=== PATIENT | female | born 1985 | race Caucasian/White ===

== ENCOUNTER 2018-04-23 18:05 | Inpatient (IN) | payer OTHER ==
[2018-04-23 18:52] VITALS: BMI 32.9
[2018-04-23 19:54] LABS: BASO % 0.4 % (0-2.0); EOS % 2.5 % (0-4.5); HEMATOCRIT 35.5 % (32.4-45.2); HEMOGLOBIN 13.1 GM/dL (10.7-15.3); MCH 31.1 pg (25.7-33.7); MCHC 36.8 g/dl (32.0-36.0); MEAN CELL VOLUME 84.5 fl (80-96); MEAN PLT VOLUME 9.9 fl (7.5-11.1); MONO % 4.7 % (3.8-10.2); NEUT % 74.4 % (42.8-82.8); PLATELET COUNT 224 K/MM3 (134-434); RDW 14.6 % (11.6-15.6); WHITE BLOOD COUNT 10.1 K/mm3 (4.0-10.0)
[2018-04-23] MEDS ORDERED: DEXTROSE 5%-LACTATED RINGERS 1,000 ML IV SCH ×2 (20:00→22:00)
[2018-04-23] MEDS ORDERED: BUTORPHANOL TARTRATE 1 MG/ML VIAL IVPUSH PRN (20:06)
[2018-04-23] MEDS ORDERED: PROMETHAZINE HCL 25 MG/1 ML VIAL IVPB PRN (20:08)
[2018-04-23 20:11] LABS: INR 0.98 (0.83-1.09); PROTHROMBIN TIME (PATIENT) 11.6 SEC (9.7-13.0)
[2018-04-23 20:14] LABS: ACTIVATED PTT 23.8 SECONDS (25.2-36.5)
--- NOTE | 2018-04-23 20:18 | HP ---
Past Medical History - Primary Care Physician PCP:: Adilene Stanley - Admission Chief Complaint: Spontaneous rupture of membranes. IUP at 39 week History of Present Illness: 32 yo EDC 04/27/18 EGA 39.3 weeks admitted due to SROM. No medical problems Hx x1 VTOP x5 Spont AB x 1 Hx of Anemia History Source: Patient - Past Medical History ...: 8 ...Para: 1 ...Term: 1 ...: 0 ...Spon : 1 ...Induced : 5 ...Multiple Gestation: 0 ...LMP: 07/06/17 ... Weeks Gestation by Dates: 41.4 ...EDC by Dates: 04/12/18 ...EDC by Sono: 04/27/18 - Past Surgical History Past Surgical History: Yes: None Hx Myomectomy: No Hx Transabdominal Cerclage: No - Smoking History Smoking history: Never smoked Have you smoked in the past 12 months: No - Alcohol/Substance Use Hx Alcohol Use: No Home Medications - Allergies Allergies/Adverse Reactions: Allergies Allergy/AdvReac Type Severity Reaction Status Date / Time No Known Allergies Allergy Verified 04/23/18 18:43 - Home Medications Home Medications: Ambulatory Orders Pnv No.95/Ferrous Fum/Folic AC [ Formula] 1 each PO DAILY 04/23/18 Review of Systems - Review of Systems Constitutional: reports: No Symptoms Eyes: reports: No Symptoms HENT: reports: No Symptoms Neck: reports: No Symptoms Cardiovascular: reports: No Symptoms Respiratory: reports: No Symptoms Gastrointestinal: reports: Abdominal Pain Genitourinary: reports: No Symptoms Breasts: reports: No Symptoms Reported Musculoskeletal: reports: No Symptoms Integumentary: reports: No Symptoms Neurological: reports: No Symptoms Endocrine: reports: No Symptoms Hematology/Lymphatic: reports: No Symptoms Psychiatric: reports: No Symptoms Physical Exam - Maternity Vital Signs: Vital Signs Temperature 98.4 F 04/23/18 18:47 Pulse Rate 82 04/23/18 18:47 Respiratory Rate 18 04/23/18 18:47 Blood Pressure 120/71 04/23/18 18:47 O2 Sat by Pulse Oximetry (%) Constitutional: Yes: Well Nourished, No Distress HENT: Yes: WNL Neck: Yes: WNL Lungs: Clear to auscultation - Abdominal Exam/OB Fundal Height: 40 Number of Fetuses: Single Presentation: Vertex Regularity: Regular Intensity: Mild/Mod Monitor Mode: External Category: I Accelerations: Non-Uniform Decelerations: None - Vaginal Exam/OB Dilatation (cm): 2 Effacement (%): 100 Amniotic Membrane Status: Ruptured Presentation: Vertex/Position - Labs Lab Results: CBC, BMP 04/23/18 19:30 Problem List - Problems (1) Spontaneous rupture of amniotic membranes Code(s): RRY0910 - (2) 39 weeks gestation of Code(s): Z3A.39 - 39 WEEKS GESTATION OF Assessment/Plan Cat 1 SROM 39 week Plan Admit Stadol PRN
[2018-04-23 20:20] LABS: ANION GAP 12 MMOL/L (8-16); BLOOD UREA NITROGEN 10 mg/dL (7-18); CALCIUM 8.9 mg/dL (8.5-10.1); CHLORIDE 104 mmol/L (98-107); CO2 21 mmol/L (21-32); CREATININE 0.6 mg/dL (0.55-1.3); GLUCOSE,RANDOM 111 mg/dL (74-106); POTASSIUM 4.1 mmol/L (3.5-5.1); SODIUM 137 mmol/L (136-145)
[2018-04-23] MEDS: ELECTROLYTE-148 SOLN 1,000 ML IV SCH (20:20)
[2018-04-23] MEDS ORDERED: PROMETHAZINE HCL 25 MG/1 ML VIAL IVPB ONE (21:00)
[2018-04-23] MEDS ORDERED: BUTORPHANOL TARTRATE 1 MG/ML VIAL IVPUSH ONE (21:00)
[2018-04-24] MEDS ORDERED: BUTORPHANOL TARTRATE 1 MG/ML VIAL ONE ×2 (03:00)
[2018-04-24] MEDS ORDERED: PROMETHAZINE HCL 25 MG/1 ML VIAL ONE (03:01)
[2018-04-24] MEDS: ELECTROLYTE-148 SOLN 1,000 ML IV SCH (06:00)
[2018-04-24] MEDS ORDERED: FENTANYL/BUPIVACAINE/NS/PF - PCEA - 50 ML DISP.SYRIN EP ONE ×2 (08:35→13:17)
[2018-04-24] MEDS ORDERED: NALOXONE HCL 0.4 MG/ML VIAL IVPUSH PRN (08:38)
[2018-04-24] MEDS ORDERED: LIDO 2%/EPI 1:200000 PRESRVFRE (20 ML SDVIAL) ONE (08:40)
[2018-04-24] MEDS ORDERED: FENTANYL/BUPIVACAINE/NS/PF - PCEA - 50 ML DISP.SYRIN EP SCH (08:45)
[2018-04-24] MEDS ORDERED: AMPICILLIN SODIUM 2 GM VIAL ONE (10:28)
[2018-04-24] MEDS ORDERED: LIDOCAINE HCL 1% PRESERVATIVE FREE - 30ML VIAL ONE (10:28)
[2018-04-24] MEDS ORDERED: OXYTOCIN 20 UNITS in 0.9% NS 20 UNIT/1,000 ML INFUS.BAG IV ONE ×2 (10:28→16:41)
[2018-04-24] MEDS ORDERED: AMPICILLIN - 2 GM in SODIUM CHLORIDE 100 ML IVPB ONE (10:30)
--- NOTE | 2018-04-24 12:18 | PN ---
Ante-Partal Exam - Subjective Subjective: Pt comfortable s/p epidural Vital Signs: Vital Signs Temperature 98.1 F 04/24/18 12:00 Pulse Rate 74 04/24/18 10:45 Respiratory Rate 20 04/24/18 10:45 Blood Pressure 120/70 04/24/18 10:45 O2 Sat by Pulse Oximetry (%) 100 04/24/18 10:45 Bleeding: Yes Bleeding Description: Mild Headache: No Visual changes: No Right upper quadrant pain: No Pain (scale 1-10): 0 - Contractions Contractions: Yes Regularity: Regular Intensity: Mod/Strong Monitor Mode: External - Exam during Labor Variability: Moderate Category: I Monitor Accelerations: Present Monitor Decelerations: None Exam: Vaginal Dilatation (cm): 7.5 Effacement (%): 100 Amniotic Membrane Status: Ruptured Amniotic Fluid: Clear Presentation: Vertex Station: 0 - Assessment/Plan Assessment/Plan: Pt with SROM, active labor continue expectant management FHTs cat 1 anticipate
[2018-04-24] MEDS ORDERED: OXYTOCIN 30 UNITS in 0.9% NS 30 UNIT/500 ML INFUS.BAG IVPB SCH (14:30)
[2018-04-24] MEDS: AMPICILLIN - 1 GM in SODIUM CHLORIDE 100 ML IVPB SCH ×2 (14:35→14:55)
[2018-04-24] MEDS ORDERED: AMPICILLIN SODIUM 1 GM VIAL ONE (14:43)
[2018-04-24] MEDS ORDERED: MISOPROSTOL 200 MCG TABLET NR SCH (16:00)
[2018-04-24] MEDS ORDERED: BENZOCAINE 28 GM HEMORRHOIDAL OINTMENT TP PRN (16:21)
[2018-04-24] MEDS ORDERED: METHYLERGONOVINE MALEATE 0.2 MG/1 ML AMP IM PRN (16:21)
[2018-04-24] MEDS ORDERED: BENZOCAINE 20% 57 GM BOTTLE TP PRN (16:21)
[2018-04-24] MEDS ORDERED: WITCH HAZEL 50% (TUCKS) 40 PAD/JAR PAD TP PRN (16:21)
[2018-04-24] MEDS ORDERED: BISACODYL 10 MG SUPP.RECT RC PRN (16:21)
--- NOTE | 2018-04-24 16:29 | PN ---
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 Gender: Male Position: Left, OA - 1 Minute Total Score: 9 5 Minutes Total Score: 9 - Feeding Plan Initial Plan: Exclusive throughout hospitalization Remarks - Remarks Remarks: Normal of baby boy from LALI position anterior and posterior shoulders delivered with ease along with remainder of cord clamped and cut mouth and nose bulb suctioned placenta delivered - appeared in tact mom with post hemorrage - evaluated with pelvic exam/uterine massage/ bedside ultrasound small piece of placenta and clots removed with massage 0.2 of methergine given IM, 1000mcg of cytotec given KS bleeding normal after those interventions sponge count correct after delivery mom stable will check cbc 8pm baby to well baby nursery
[2018-04-24] MEDS ORDERED: OXYTOCIN 20 UNITS in 0.9% NS 20 UNIT/1,000 ML INFUS.BAG IV SCH (16:30)
[2018-04-24] MEDS ORDERED: MISOPROSTOL 200 MCG TABLET NR ONE (17:00)
[2018-04-24] MEDS: FERROUS SO4 325 MG TABLET (FP) PO SCH (18:32)
[2018-04-24 20:47] LABS: BASO % 0.2 % (0-2.0); EOS % 0.4 % (0-4.5); HEMATOCRIT 32.9 % (32.4-45.2); LYMPH % 8.1 % (8-40); MCH 30.9 pg (25.7-33.7); MCHC 36.4 g/dl (32.0-36.0); MEAN CELL VOLUME 84.8 fl (80-96); MEAN PLT VOLUME 9.4 fl (7.5-11.1); MONO % 5.5 % (3.8-10.2); NEUT % 85.8 % (42.8-82.8); PLATELET COUNT 204 K/MM3 (134-434); RBC 3.88 M/mm3 (3.60-5.2); RDW 14.4 % (11.6-15.6); WHITE BLOOD COUNT 20.8 K/mm3 (4.0-10.0)
[2018-04-24 23:53] LABS: PLATELET ESTIMATE ADEQUATE
[2018-04-25] MEDS: ACETAMINOPHEN 325 MG TABLET (FP) PO PRN ×2 (06:38→14:42)
[2018-04-25] MEDS: IBUPROFEN 600 MG TABLET (FP) PO PRN ×2 (06:38→14:42)
--- NOTE | 2018-04-25 06:57 | PN ---
Post Progress Note - Subjective Subjective: Doing well, no complaints. VB minimal. Tolerating diet, ambulating, voiding. Passing flatus. FEels well. Type of Delivery: Vital Signs: Vital Signs Temperature 98.3 F 04/25/18 06:00 Pulse Rate 90 04/25/18 02:26 Respiratory Rate 18 04/25/18 02:26 Blood Pressure 120/70 04/25/18 02:26 O2 Sat by Pulse Oximetry (%) 99 04/24/18 15:15 Uterus: Yes: Fundus Firm Abdomen/GI: Yes: Abdomen soft, Tolerating PO Lochia: Yes: Rubra Lochia, amount: Small Extremities: Yes: Calves non-tender Perineum: Yes: Intact Activity: Ambulating - Labs Labs: CBC WBC 20.8 K/mm3 (4.0-10.0) H 04/24/18 20:00 RBC 3.88 M/mm3 (3.60-5.2) 04/24/18 20:00 Hgb 12.0 GM/dL (10.7-15.3) 04/24/18 20:00 Hct 32.9 % (32.4-45.2) 04/24/18 20:00 MCV 84.8 fl (80-96) 04/24/18 20:00 MCH 30.9 pg (25.7-33.7) 04/24/18 20:00 MCHC 36.4 g/dl (32.0-36.0) H 04/24/18 20:00 RDW 14.4 % (11.6-15.6) 04/24/18 20:00 Plt Count 204 K/MM3 (134-434) 04/24/18 20:00 MPV 9.4 fl (7.5-11.1) 04/24/18 20:00 Absolute Neuts (auto) 17.9 K/mm3 (1.5-8.0) H 04/24/18 20:00 Neutrophils % 85.8 % (42.8-82.8) H 04/24/18 20:00 Neutrophils % (Manual) 78.0 % (42.8-82.8) 04/24/18 20:00 Band Neutrophils % 8.0 % 04/24/18 20:00 Lymphocytes % 8.1 % (8-40) D 04/24/18 20:00 Lymphocytes % (Manual) 11.0 % (8-40) 04/24/18 20:00 Monocytes % 5.5 % (3.8-10.2) 04/24/18 20:00 Monocytes % (Manual) 3 % (3.8-10.2) L 04/24/18 20:00 Eosinophils % 0.4 % (0-4.5) D 04/24/18 20:00 Basophils % 0.2 % (0-2.0) 04/24/18 20:00 Nucleated RBC % 0 % (0-0) 04/24/18 20:00 Platelet Estimate Adequate 04/24/18 20:00 Platelet Comment No clumping noted 04/24/18 20:00 Problem List - Problems (1) Vaginal delivery Code(s): O80 - ENCOUNTER FOR FULL-TERM UNCOMPLICATED DELIVERY (2) hemorrhage Code(s): O72.1 - OTHER IMMEDIATE HEMORRHAGE Assessment/Plan regular diet ambulation PO pain meds routine care
[2018-04-25 07:09] LABS: BASO % 0.2 % (0-2.0); EOS % 1.4 % (0-4.5); HEMATOCRIT 30.8 % (32.4-45.2); HEMOGLOBIN 10.6 GM/dL (10.7-15.3); LYMPH % 13.4 % (8-40); MCH 29.5 pg (25.7-33.7); MCHC 34.4 g/dl (32.0-36.0); MEAN CELL VOLUME 85.6 fl (80-96); MEAN PLT VOLUME 9.3 fl (7.5-11.1); MONO % 6.5 % (3.8-10.2); NEUT % 78.5 % (42.8-82.8); PLATELET COUNT 181 K/MM3 (134-434); RDW 14.6 % (11.6-15.6); WHITE BLOOD COUNT 18.2 K/mm3 (4.0-10.0)
[2018-04-25] MEDS: FERROUS SO4 325 MG TABLET (FP) PO SCH ×3 (08:21→17:20)
[2018-04-25] MEDS: PRENATAL VITAMINS W/ FOLIC ACID TABLET (FP) PO SCH (09:48)
[2018-04-25] MEDS ORDERED: SENNOSIDES/DOCUSATE COMBO (SENNA PLUS) TABLET (UD) PO PRN (22:00)
[2018-04-26] MEDS: FERROUS SO4 325 MG TABLET (FP) PO SCH ×2 (08:23→11:56)
[2018-04-26] MEDS: PRENATAL VITAMINS W/ FOLIC ACID TABLET (FP) PO SCH (09:29)
[2018-04-26 09:51] VITALS: BP 124/72; PULSE 66; TEMP 98.1
--- NOTE | 2018-04-26 10:59 | DS ---
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: Vital Signs Temperature 98.1 F 04/26/18 09:49 Pulse Rate 66 04/26/18 09:49 Respiratory Rate 20 04/26/18 09:49 Blood Pressure 124/72 04/26/18 09:49 O2 Sat by Pulse Oximetry (%) 99 04/24/18 15:15 Constitutional: Yes: Well Nourished, No Distress ....Post : Yes: Uterus firm, Uterus non-tender Breast(s): Yes: WNL Musculoskeletal: Yes: WNL Extremities: Yes: WNL Edema: No Neurological: Yes: WNL, Alert, Oriented Labs: CBC, BMP 04/25/18 06:00 04/23/18 19:30 Delivery - Delivery Vaginal Delivery: No Problems Type of Anesthesia: Epidural Episiotomy/Laceration: None EBL (cc): 500 Delivery, Single - Stages of Labor Date 1st Stage Initiatied: 04/24/18 Time 1st Stage Initiated: 05:00 Date 2nd Stage Initiated: 04/24/18 Time 2nd Stage Initiated: 15:00 Date of Delivery: 04/24/18 Time of Delivery: 15:26 Time Placenta Delivered: 15:30 Placenta: Yes: Manual Removal - 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 of Transfer 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 call for appointment. Referrals: Adilene Stanley MD [Staff Physician] - Disposition: HOME - Home Medications Comprehensive Discharge Medication List: Ambulatory Orders Pnv No.95/Ferrous Fum/Folic AC [ Formula] 1 each PO DAILY 04/23/18 Ibuprofen [Motrin -] 600 mg PO QID #28 tablet 04/26/18
== END 2018-04-26 14:00 | disposition home or self-care (01) | DRG 560 ==
LOC: JDEL 18:05 → JLDR 18:30 → J3W 04-24 17:45
PROVIDERS: ADMIT Obstetrics & Gynecology; ATTEND Obstetrics & Gynecology
PROC: 10E0XZZ Delivery of Products of Conception, External Approach (ICD-10-PCS; principal; 2018-04-24)
DX: O67.8 Other intrapartum hemorrhage (principal); O72.1 Other immediate postpartum hemorrhage; Z3A.39 39 weeks gestation of pregnancy; Z37.0 Single live birth
CPT/HCPCS: 36415; 59409; 80048; 85025; 85610; 85730; 86593; 86850; 86900; 86901

== ENCOUNTER 2018-09-13 11:53 | Emergency (ER) | payer OTHER ==
[2018-09-13 12:23] VITALS: BP 121/65; PULSE 98; TEMP 99.2; BMI 27.4
--- NOTE | 2018-09-13 13:03 | PDOC ---
History of Present Illness - General Chief Complaint: Pain Stated Complaint: LT BREAST LUMP Time Seen by Provider: 09/13/18 12:38 History Source: Patient Exam Limitations: No Limitations - History of Present Illness Initial Comments: 09/13/18 16:54 Patient is here with complaints of generalized body aches, low-grade fevers, and sore throat pain since yesterday states fever was 100, but has taken no medication for relief of same. Occurred: reports: yesterday Severity: reports: mild, moderate Modifying Factors: improves with: None Loss of Consciousness: no loss of consciousness Past History - Travel Traveled outside of the country in the last 30 days: No Close contact w/someone who was outside of country & ill: No - Past Medical History Allergies/Adverse Reactions: Allergies Allergy/AdvReac Type Severity Reaction Status Date / Time No Known Allergies Allergy Verified 09/13/18 12:20 Home Medications: Ambulatory Orders Amox-Tr/K Cl [Augmentin 875Mg Tablet] 1 tab PO BID #14 tablet 09/13/18 Asthma: No Cancer: No Cardiac Disorders: No COPD: Yes Diabetes: No HTN: No Seizures: No Thyroid Disease: No - Immunization History Immunization Up to Date: Yes - Suicide/Smoking/Psychosocial Hx Smoking History: Never smoked Have you smoked in the past 12 months: No Hx Alcohol Use: No Drug/Substance Use Hx: No Hx Substance Use Treatment: No Trauma Specific PMHX - Complaint Specific PMHX Back Injury: No Neck Injury: No Review of Systems - Review of Systems Able to Perform ROS?: Yes Is the patient limited Setswana proficient: Yes Constitutional: Yes: Symptoms Reported, See HPI, Malaise. No: Fever HEENTM: Yes: Symptoms Reported Respiratory: Yes: Symptoms reported, See HPI Integumentary: Yes: Symptoms Reported, See HPI, Erythema, Lesions, Lumps All Other Systems: Reviewed and Negative *Physical Exam - Vital Signs Last Vital Signs Temp Pulse Resp BP Pulse Ox 99.2 F 98 H 18 121/65 96 09/13/18 12:21 09/13/18 12:21 09/13/18 12:21 09/13/18 12:21 09/13/18 12:21 - Physical Exam General Appearance: Yes: Nourished, Appropriately Dressed, Apparent Distress, Mild Distress, Moderate Distress HEENT: positive: LULU, Normal ENT Inspection, TMs Normal, Pharynx Normal Neck: negative: Tender Respiratory/Chest: positive: Chest Tender (lactating breasts with erythema to the left upper quadrant with firmness and tenderness consistent with mastitis), Lungs Clear Integumentary: positive: Erythema, Swelling 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 Sarmiento, her EQUIPMENT MONITOR PHOTOTYPESETTING doctor who recommends Augmentin, and will see in Office *DC/Admit/Observation/Transfer Diagnosis at time of Disposition: Acute mastitis of left breast - Discharge Dispostion Disposition: HOME Condition at time of disposition: Stable Decision to Admit order: No - Prescriptions Prescriptions: Amox-Tr/K Cl [Augmentin 875Mg Tablet] 1 tab PO BID #14 tablet - Referrals - Patient Instructions Printed Discharge Instructions: DI for Mastitis Additional Instructions: Rest, avoid strenuous activity or exercise until infection and pain resolved Hot soaks-hot showers to breast to help alleviate some of the congestion, continue breast-feeding May use Tylenol for pain relief Continue Augmentin 1 tablet twice a day until completed Follow-up with Dr. Sarmiento by September 1 - Post Discharge Activity Forms/Work/School Notes: Back to Work
[2018-09-13] MEDS ORDERED: IBUPROFEN 400 MG TABLET (FP) PO ONE ×2 (13:05→13:08)
[2018-09-13] MEDS ORDERED: AMOX TR/POT CLAV 875MG/125MG TABLETS (FP) PO ONE (13:05)
[2018-09-13] MEDS ORDERED: AMOX TR/POT CLAV 875MG/125MG TABLETS (FP) ONE (13:08)
== END 2018-09-13 13:10 | disposition home or self-care (01) ==
LOC: JERFT 11:53
DX: N61.0 Mastitis without abscess (principal)
CPT/HCPCS: 99281-25

== ENCOUNTER 2020-09-18 16:12 | Emergency (ER) | payer OTHER ==
[2020-09-18 16:18] VITALS: TEMP 98.3; BMI 22.3
[2020-09-18 17:36] LABS: BASO % 1.1 % (0-2.0); EOS % 1.8 % (0-4.5); HEMATOCRIT 34.3 % (32.4-45.2); HEMOGLOBIN 12.1 GM/dL (10.7-15.3); LYMPH % 18.2 % (8-40); MCH 28.7 pg (25.7-33.7); MCHC 35.2 g/dl (32.0-36.0); MEAN CELL VOLUME 81.5 fl (80-96); MEAN PLT VOLUME 9.3 fl (7.5-11.1); MONO % 4.6 % (3.8-10.2); NEUT % 74.3 % (42.8-82.8); PLATELET COUNT 271 K/MM3 (134-434); RBC 4.21 M/mm3 (3.60-5.2); RDW 15.5 % (11.6-15.6)
[2020-09-18 17:56] LABS: CALCIUM 8.6 mg/dL (8.5-10.1)
[2020-09-18 17:57] LABS: ALBUMIN 3.2 g/dl (3.4-5.0); BLOOD UREA NITROGEN 13.6 mg/dL (7-18)
[2020-09-18 18:00] LABS: CREATININE 0.5 mg/dL (0.55-1.3)
[2020-09-18 18:02] LABS: BILIRUBIN,TOTAL 0.3 mg/dL (0.2-1); TOT PROT 7.5 g/dl (6.4-8.2)
[2020-09-18 18:36] VITALS: BP 105/65; PULSE 75
[2020-09-18 20:00] LABS: PH,URINE 5.5 (5.0-8.0); URINE APPEARANCE CLEAR; URINE BILIRUBIN NEGATIVE (NEGATIVE); URINE COLOR YELLOW; URINE GLUCOSE (UA) NEGATIVE (NEGATIVE); URINE KETONE NEGATIVE (NEGATIVE); URINE LEUK ESTERASE NEGATIVE (NEGATIVE); URINE NITRITE NEGATIVE (NEGATIVE); URINE PROTEIN NEGATIVE (NEGATIVE); URINE UROBILINOGEN 0.2 mg/dL (0.2-1.0)
== END 2020-09-18 20:20 | disposition home or self-care (01) ==
LOC: JER 16:12
DX: O26.851 Spotting complicating pregnancy, first trimester (principal); Z3A.13 13 weeks gestation of pregnancy
CPT/HCPCS: 36415; 76817-TC; 80053; 81003; 84702; 85025; 86850; 86900; 86901; 87086; 99285-25

== ENCOUNTER 2021-04-03 09:05 | Inpatient (IN) | payer OTHER ==
[2021-04-03] MEDS ORDERED: BUTORPHANOL TARTRATE 1 MG/ML VIAL IVPB PRN (12:48)
[2021-04-03] MEDS: ELECTROLYTE-148 SOLN 1,000 ML IV SCH (13:00)
[2021-04-03 13:11] VITALS: BMI 33.5
[2021-04-03 14:10] LABS: BASO % 0.5 % (0-2.0); EOS % 1.8 % (0-4.5); HEMATOCRIT 37.7 % (32.4-45.2); LYMPH % 18.5 % (8-40); MCH 26.8 pg (25.7-33.7); MCHC 34.4 g/dl (32.0-36.0); MEAN CELL VOLUME 77.9 fl (80-96); MEAN PLT VOLUME 9.3 fl (7.5-11.1); MONO % 6.1 % (3.8-10.2); NEUT % 73.1 % (42.8-82.8); PLATELET COUNT 267 10^3/uL (134-434); RBC 4.84 M/mm3 (3.60-5.2); WHITE BLOOD COUNT 10.3 K/mm3 (4.0-10.0)
[2021-04-03] MEDS ORDERED: DINOPROSTONE 10 MG VAGINAL SUPPOSITORY VG ONE (22:45)
[2021-04-04] MEDS: ELECTROLYTE-148 SOLN 1,000 ML IV SCH ×2 (05:00→20:03)
[2021-04-04] MEDS ORDERED: OXYTOCIN 30 UNITS in 0.9% NS 30 UNIT/500 ML INFUS.BAG IVPB SCH (08:00)
[2021-04-04 08:31] LABS: POC NITRAZINE NEG
[2021-04-04] MEDS ORDERED: PCA PUMP NR ONE ×2 (14:10→16:49)
[2021-04-04] MEDS ORDERED: FENTANYL/BUPIVACAINE/NS/PF - PCEA - 50 ML DISP.SYRIN EP ONE ×2 (14:11→14:26)
[2021-04-04] MEDS ORDERED: BUPIVACAINE HCL/PF 0.25% (2.5MG/ML) 10 ML VIAL ONE (14:33)
[2021-04-04] MEDS ORDERED: OXYTOCIN 20 UNITS in 0.9% NS 20 UNIT/1,000 ML INFUS.BAG IV ONE (15:30)
[2021-04-04] MEDS ORDERED: NALOXONE HCL 0.4 MG/ML VIAL IVPUSH PRN (15:55)
[2021-04-04] MEDS ORDERED: FENTANYL/BUPIVACAINE/NS/PF - PCEA - 50 ML DISP.SYRIN EP SCH (16:00)
[2021-04-04] MEDS: METHYLERGONOVINE MALEATE 0.2 MG/1 ML AMP IM PRN ×2 (17:10→22:18)
[2021-04-04] MEDS ORDERED: MISOPROSTOL 200 MCG TABLET ONE ×2 (17:14→17:16)
[2021-04-04] MEDS ORDERED: ceFAZolin SODIUM 1 GM VIAL ONE (17:21)
[2021-04-04] MEDS ORDERED: ceFAZolin SODIUM 1 GM VIAL IVPB ONE (17:30)
[2021-04-04] MEDS ORDERED: ACETAMINOPHEN 325 MG TABLET (FP) PO PRN (17:31)
[2021-04-04] MEDS ORDERED: BISACODYL 10 MG SUPP.RECT RC PRN (17:31)
[2021-04-04] MEDS ORDERED: BENZOCAINE 20% 57 GM BOTTLE TP PRN (17:31)
[2021-04-04] MEDS ORDERED: WITCH HAZEL 50% (TUCKS) 40 PAD/JAR PAD TP PRN (17:31)
[2021-04-04] MEDS ORDERED: BENZOCAINE 28 GM HEMORRHOIDAL OINTMENT TP PRN (17:31)
[2021-04-04] MEDS ORDERED: MISOPROSTOL 200 MCG TABLET NR ONE (17:35)
[2021-04-04] MEDS ORDERED: OXYTOCIN 20 UNITS in 0.9% NS 20 UNIT/1,000 ML INFUS.BAG IV SCH (17:45)
[2021-04-04 18:02] LABS: CORD BASE EXCESS -3.9 mmol/L (0-2); CORD HCO3 21.1 mmHg (20-29); CORD PCO2 38.4 mmHg (30-78); CORD pH 7.357 (7.14-7.44)
[2021-04-04] MEDS ORDERED: IBUPROFEN 600 MG TABLET (FP) PO ONE (19:22)
[2021-04-04] MEDS ORDERED: ACETAMINOPHEN 325 MG TABLET (FP) ONE (19:23)
[2021-04-04] MEDS: IBUPROFEN 600 MG TABLET (FP) PO PRN (19:30)
[2021-04-04 20:39] LABS: BASO % 0.2 % (0-2.0); EOS % 0.4 % (0-4.5); HEMATOCRIT 29.5 % (32.4-45.2); HEMOGLOBIN 10.2 GM/dL (10.7-15.3); MCH 26.9 pg (25.7-33.7); MCHC 34.7 g/dl (32.0-36.0); MEAN CELL VOLUME 77.6 fl (80-96); MEAN PLT VOLUME 9.4 fl (7.5-11.1); MONO % 4.9 % (3.8-10.2); NEUT % 85.5 % (42.8-82.8); PLATELET COUNT 194 10^3/uL (134-434); RDW 20.6 % (11.6-15.6); WHITE BLOOD COUNT 17.6 K/mm3 (4.0-10.0)
[2021-04-05] MEDS: IBUPROFEN 600 MG TABLET (FP) PO PRN ×2 (00:25→18:39)
[2021-04-05] MEDS ORDERED: DEXTROSE 5%-WATER - 50 ML IVPB ONE (02:01)
[2021-04-05] MEDS ORDERED: LIDOCAINE HCL 1% PRESERVATIVE FREE - 30ML VIAL ONE (02:02)
[2021-04-05 03:10] LABS: HEMATOCRIT 26.8 % (32.4-45.2); HEMOGLOBIN 9.3 GM/dL (10.7-15.3); MCH 27.1 pg (25.7-33.7); MCHC 34.8 g/dl (32.0-36.0); MEAN CELL VOLUME 77.9 fl (80-96); MEAN PLT VOLUME 9.7 fl (7.5-11.1); PLATELET COUNT 188 10^3/uL (134-434); RBC 3.44 M/mm3 (3.60-5.2); RDW 20.6 % (11.6-15.6); WHITE BLOOD COUNT 15.8 K/mm3 (4.0-10.0)
[2021-04-05] MEDS: METHYLERGONOVINE MALEATE 0.2 MG/1 ML AMP IM PRN (06:37)
[2021-04-05 08:54] LABS: BASO % 0.3 % (0-2.0); EOS % 1.1 % (0-4.5); HEMATOCRIT 31.7 % (32.4-45.2); LYMPH % 12.3 % (8-40); MCH 27.4 pg (25.7-33.7); MCHC 34.8 g/dl (32.0-36.0); MEAN CELL VOLUME 78.5 fl (80-96); MEAN PLT VOLUME 9.8 fl (7.5-11.1); MONO % 5.2 % (3.8-10.2); NEUT % 81.1 % (42.8-82.8); PLATELET COUNT 191 10^3/uL (134-434); RBC 4.04 M/mm3 (3.60-5.2); RDW 20.2 % (11.6-15.6); WHITE BLOOD COUNT 15.7 K/mm3 (4.0-10.0)
[2021-04-05] MEDS: PRENATAL VITAMINS W/ FOLIC ACID TABLET (FP) PO SCH (09:54)
[2021-04-05] MEDS: FERROUS SO4 325 MG TABLET (FP) PO SCH ×3 (09:54→17:47)
[2021-04-05] MEDS: CEFAZOLIN 1 GM in DEXTROSE 5%-WATER - 50 ML IVPB SCH ×2 (10:02→17:47)
[2021-04-05] MEDS ORDERED: SENNOSIDES/DOCUSATE COMBO (SENNA PLUS) TABLET (UD) PO PRN (22:00)
[2021-04-06] MEDS: CEFAZOLIN 1 GM in DEXTROSE 5%-WATER - 50 ML IVPB SCH (02:05)
[2021-04-06] MEDS: FERROUS SO4 325 MG TABLET (FP) PO SCH (09:19)
[2021-04-06] MEDS: PRENATAL VITAMINS W/ FOLIC ACID TABLET (FP) PO SCH (09:19)
[2021-04-06 09:54] VITALS: BP 121/72; PULSE 79; TEMP 97.8
== END 2021-04-06 12:10 | disposition home or self-care (01) | DRG 560 ==
LOC: JDEL 09:05 → JLDR 12:20 → J3W 04-04 20:06
PROVIDERS: ADMIT Obstetrics & Gynecology; ATTEND Obstetrics & Gynecology
PROC: 10E0XZZ Delivery of Products of Conception, External Approach (ICD-10-PCS; principal; 2021-04-04)
DX: O41.03X0 Oligohydramnios, third trimester, not applicable or unspecified (principal); O72.0 Third-stage hemorrhage; O48.0 Post-term pregnancy; Z3A.41 41 weeks gestation of pregnancy; Z37.0 Single live birth
CPT/HCPCS: 36415; 36430; 36600; 59409; 76819-TC; 80048; 82803; 83986-QW; 85025; 85027; 85610; 85730; 86780; 86850; 86900; 86901; 86922; C9803; P9058; U0003; U0005

== ENCOUNTER 2021-04-29 16:08 | Emergency (ER) | payer OTHER ==
[2021-04-29 16:39] VITALS: PULSE 89; BMI 26.5
[2021-04-29 17:59] LABS: BASO % 0.3 % (0-2.0); EOS % 0.5 % (0-4.5); HEMATOCRIT 35.7 % (32.4-45.2); LYMPH % 5.4 % (8-40); MCH 26.8 pg (25.7-33.7); MCHC 33.5 g/dl (32.0-36.0); MEAN CELL VOLUME 79.9 fl (80-96); MEAN PLT VOLUME 8.4 fl (7.5-11.1); MONO % 3.1 % (3.8-10.2); NEUT % 90.7 % (42.8-82.8); PLATELET COUNT 271 10^3/uL (134-434); RBC 4.47 M/mm3 (3.60-5.2); RDW 17.7 % (11.6-15.6); WHITE BLOOD COUNT 10.4 K/mm3 (4.0-10.0)
[2021-04-29] MEDS ORDERED: SODIUM CHLORIDE 1,000 ML IV STA (18:06)
[2021-04-29 18:25] LABS: BLOOD UREA NITROGEN 17.6 mg/dL (7-18); CALCIUM 9.3 mg/dL (8.5-10.1)
[2021-04-29 18:26] LABS: ALBUMIN 3.2 g/dl (3.4-5.0)
[2021-04-29 18:28] LABS: CREATININE 0.8 mg/dL (0.55-1.3)
[2021-04-29 18:29] LABS: BILIRUBIN,TOTAL 0.4 mg/dL (0.2-1); TOT PROT 7.4 g/dl (6.4-8.2)
[2021-04-29 18:54] LABS: EPI CELLS 16 /uL (0-25.1); HYALINE CASTS 4 /uL (0-3.1); PH,URINE 5.5 (5.0-8.0); URINE APPEARANCE CLOUDY; URINE BILIRUBIN NEGATIVE (NEGATIVE); URINE COLOR DK YELLOW; URINE GLUCOSE (UA) NEGATIVE (NEGATIVE); URINE KETONE 1+ (NEGATIVE); URINE LEUK ESTERASE 2+ (NEGATIVE); URINE NITRITE NEGATIVE (NEGATIVE); URINE PROTEIN 1+ (NEGATIVE); URINE RBC 279 /uL (0-23.9); URINE WBC 1342 /uL (0-25.8)
[2021-04-29] MEDS ORDERED: KETOROLAC TROMETHAMINE 15 MG/ML VIAL IVPUSH ONE (20:24)
[2021-04-29 20:40] VITALS: BP 133/77; TEMP 101
[2021-04-29] MEDS ORDERED: KETOROLAC TROMETHAMINE 30 MG/1 ML VIAL ONE (20:42)
[2021-04-29] MEDS ORDERED: CEFTRIAXONE 1 GM in DEXTROSE 5%-WATER - 100 ML IVPB ONE (21:17)
[2021-04-29] MEDS ORDERED: CEFTRIAXONE 1 GM/50 ML BAG ONE (21:25)
[2021-04-29 21:43] LABS: URINE BACTERIA 160.7 /uL (0-1359)
== END 2021-04-29 22:33 | disposition home or self-care (01) ==
LOC: JER 16:08
PROC: 3E03329 Introduction of Other Anti-infective into Peripheral Vein, Percutaneous Approach (ICD-10-PCS; principal; 2021-04-29)
PROC: 3E0333Z Introduction of Anti-inflammatory into Peripheral Vein, Percutaneous Approach (ICD-10-PCS; 2021-04-29)
PROC: 3E0337Z Introduction of Electrolytic and Water Balance Substance into Peripheral Vein, Percutaneous Approach (ICD-10-PCS; 2021-04-29)
DX: N76.0 Acute vaginitis (principal); N30.00 Acute cystitis without hematuria
CPT/HCPCS: 36415; 76856-TC; 80053; 81003; 84702; 85025; 87040; 87070; 87086; 87205; 99284-25; C9803; U0003; U0005

== ENCOUNTER 2021-11-25 10:43 | Emergency (ER) | payer OTHER ==
[2021-11-25 11:04] VITALS: BP 110/69; PULSE 90; BMI 24.3
[2021-11-25 11:15] VITALS: TEMP 98.1
== END 2021-11-25 11:45 | disposition home or self-care (01) ==
LOC: JER 10:43
DX: O91.23 Nonpurulent mastitis associated with lactation (principal)
CPT/HCPCS: 99281-25

== ENCOUNTER 2022-09-29 08:50 | Emergency (ER) | payer OTHER ==
[2022-09-29 09:02] VITALS: BP 121/74; PULSE 84; RESP 17; TEMP 98.9; BMI 26.5
[2022-09-29] MEDS ORDERED: ACETAMINOPHEN 325 MG TABLET (FP) PO ONE (09:13)
[2022-09-29] MEDS ORDERED: ACETAMINOPHEN 325 MG TABLET (FP) ONE (09:16)
[2022-09-29] MEDS ORDERED: LIDOCAINE 5% TOPICAL PATCH TP ONE (09:17)
[2022-09-29] MEDS ORDERED: LIDOCAINE 5% TOPICAL PATCH ONE (09:18)
[2022-09-29] MEDS ORDERED: IBUPROFEN 400 MG TABLET (FP) PO ONE ×2 (10:02→10:11)
[2022-09-29] MEDS ORDERED: LIDOCAINE PATCH REMOVAL MC SCH (22:00)
== END 2022-09-29 10:19 | disposition home or self-care (01) ==
LOC: JERFT 08:50
DX: M54.2 Cervicalgia (principal); M54.6 Pain in thoracic spine
CPT/HCPCS: 84703; 99283-25